=== PATIENT | female | born 1995 | race American Indian/Alaskan Native ===

== ENCOUNTER 2019-03-01 20:36 | Emergency (ER) | payer SELFPAY ==
--- NOTE | 2019-03-01 21:21 | Event Note ---
ED Screening Note Date of service: 03/01/19 ED Screening Note: This initial assessment/diagnostic orders/clinical plan/treatment(s) is/are subject to change based on patients health status, clinical progression and re- assessment by fellow clinical providers in the ED. Further treatment and workup at subsequent clinical providers discretion. Patient/guardian urged not to elope from the ED as their condition may be serious if not clinically assessed and managed. Initial orders include: 23yo BF states that she has CP and coughing x 2 days. She states that she has used her nebulizer for asthma at home with no relief.
[2019-03-01] MEDS ORDERED: IPRATROPIUM 0.02% NEBU 2.5 ML IH ONE (23:58)
[2019-03-01] MEDS ORDERED: methylPREDNISolone Sod Succinate 125 MG/2 ML INJ IV ONE (23:58)
[2019-03-01] MEDS ORDERED: ALBUTEROL 2.5 MG/3 ML NEBU IH ONE (23:58)
[2019-03-02 00:24] LABS: Hematocrit 38.3 % (30.3-42.9); Hemoglobin 12.9 gm/dl (10.1-14.3); Mean Corpuscular HGB Conc 34 % (30-34); Mean Corpuscular Volume 93 fl (79-97); Platelet Count 244 K/mm3 (140-440); Red Blood Count 4.13 M/mm3 (3.65-5.03); Red Cell Distribution Width 13.8 % (13.2-15.2)
[2019-03-02 00:45] LABS: BUN/Creatinine Ratio 17; Blood Urea Nitrogen 10 mg/dL (7-17); Calcium 9.1 mg/dL (8.4-10.2); Hemolysis Index 52
--- NOTE | 2019-03-02 01:24 | Emergency Department Report ---
ED Asthma HPI - General Chief Complaint: Adult Asthma Stated Complaint: [place] WHEEZING ASTHMA Time Seen by Provider: 03/01/19 23:54 Source: patient Mode of arrival: Ambulatory Limitations: No Limitations - History of Present Illness Initial Comments: Patient is a 23-year-old female presents emergency room with complaints of an asthma exacerbation that began 2 days ago. She has associated wheezing, chest tightness, dry cough. She denies any productive cough or fever. She denies any sick contacts. She states she is a nonsmoker. She denies any other medical problems. She denies any allergies medications. She states that she uses albuterol inhaler and nebulizer treatments at home. She states that she is doing approximately 6 nebulizer treatments a day. - Related Data Previous Rx's Medication Instructions Recorded Last Taken Type ALBUTEROL Inhaler (OR & NICU) 2 puff IH QID PRN #8.5 gram 03/02/19 Unknown Rx [ProAir HFA Inhaler] Albuterol Sulfate [Albuterol 0.63% 0.63 mg IH TID PRN #1 box 03/02/19 Unknown Rx NEBS] predniSONE [Deltasone] 20 mg PO QDAY 9 Days #18 tab 03/02/19 Unknown Rx Allergies Allergy/AdvReac Type Severity Reaction Status Date / Time No Known Allergies Allergy Unverified 03/01/19 21:10 ED Review of Systems ROS: Stated complaint: [place] WHEEZING ASTHMA Other details as noted in HPI Comment: All other systems reviewed and negative ED Past Medical Hx - Past Medical History Previous Medical History?: Yes Hx Arthritis: Yes - Surgical History Past Surgical History?: No - Social History Smoking Status: Former Smoker Substance Use Type: None - Medications Home Medications: Home Medications Medication Instructions Recorded Confirmed Last Taken Type ALBUTEROL Inhaler (OR & NICU) 2 puff IH QID PRN #8.5 gram 03/02/19 Unknown Rx [ProAir HFA Inhaler] Albuterol Sulfate [Albuterol 0.63% 0.63 mg IH TID PRN #1 box 03/02/19 Unknown Rx NEBS] predniSONE [Deltasone] 20 mg PO QDAY 9 Days #18 tab 03/02/19 Unknown Rx ED Physical Exam - General Limitations: No Limitations General appearance: alert, in no apparent distress - Head Head exam: Present: atraumatic, normocephalic - Eye Eye exam: Present: normal appearance - ENT ENT exam: Present: mucous membranes moist - Respiratory Respiratory exam: Present: wheezes (bilaterally), rhonchi (bilaterally), prolonged expiratory, other (speaking in full sentences). Absent: rales, stridor, chest wall tenderness, accessory muscle use, decreased breath sounds - Cardiovascular Cardiovascular Exam: Present: regular rate, normal rhythm, normal heart sounds. Absent: systolic murmur, diastolic murmur, rubs, gallop - Neurological Exam Neurological exam: Present: alert, oriented X3 - Psychiatric Psychiatric exam: Present: normal affect, normal mood - Skin Skin exam: Present: warm, dry, intact ED Course Vital Signs 03/01/19 03/01/19 03/02/19 20:45 23:43 00:00 Temperature 99.0 F 98.9 F Pulse Rate 95 H 84 89 Pulse Rate [ Bilateral Throughout] Respiratory 15 18 17 Rate Respiratory Rate [Bilateral Throughout] Blood Pressure 123/86 126/79 Blood Pressure 135/79 [Left] O2 Sat by Pulse 94 95 95 Oximetry 03/02/19 03/02/19 03/02/19 00:30 00:48 01:00 Temperature Pulse Rate 73 108 H Pulse Rate [ 75 Bilateral Throughout] Respiratory 13 11 L Rate Respiratory 14 Rate [Bilateral Throughout] Blood Pressure 131/69 143/76 Blood Pressure [Left] O2 Sat by Pulse 99 100 Oximetry 03/02/19 03/02/19 01:30 02:15 Temperature Pulse Rate 90 Pulse Rate [ Bilateral Throughout] Respiratory 16 Rate Respiratory Rate [Bilateral Throughout] Blood Pressure 133/69 Blood Pressure 115/68 [Left] O2 Sat by Pulse 98 96 Oximetry - Reevaluation(s) Reevaluation #1: 03/02/19 02:21 On reexamination after nebulizer treatment and steroids and breath sounds have significantly improved very mild slight wheeze in the bilateral bases patient states she is feeling much better ED Medical Decision Making - Lab Data Result diagrams: 03/02/19 00:14 03/02/19 00:14 Lab Results 03/02/19 03/02/19 03/02/19 Range/Units 00:14 00:14 00:14 WBC 10.4 (4.5-11.0) K/mm3 RBC 4.13 (3.65-5.03) M/mm3 Hgb 12.9 (10.1-14.3) gm/dl Hct 38.3 (30.3-42.9) % MCV 93 (79-97) fl MCH 31 (28-32) pg MCHC 34 (30-34) % RDW 13.8 (13.2-15.2) % Plt Count 244 (140-440) K/mm3 Sodium 137 (137-145) mmol/L Potassium 3.9 (3.6-5.0) mmol/L Chloride 101.8 (98-107) mmol/L Carbon Dioxide 19 L (22-30) mmol/L Anion Gap 20 mmol/L BUN 10 (7-17) mg/dL Creatinine 0.6 L (0.7-1.2) mg/dL Estimated GFR > 60 ml/min BUN/Creatinine Ratio 17 % Glucose 84 (65-100) mg/dL Calcium 9.1 (8.4-10.2) mg/dL HCG, Qual Negative (Negative) - Radiology Data Radiology results: report reviewed CHEST 2 VIEWS INDICATION / CLINICAL INFORMATION: cough, chest tightness, hx of asthma. COMPARISON: None available. FINDINGS: SUPPORT DEVICES: None. HEART / MEDIASTINUM: No significant abnormality. LUNGS / PLEURA: No significant pulmonary or pleural abnormality. No pneumothora x. ADDITIONAL FINDINGS: No significant additional findings. IMPRESSION: 1. No acute findings. Signer Name: Madan Lauren MD Signed: 03/02/2019 2:09 AM Workstation Name: [id number] Transcribed By: Dictated By: Madan Lauren MD Electronically Authenticated By: Madan Lauren MD Signed Date/Time: 03/02/19 0209 - Medical Decision Making Patient is a 23-year-old female presents emergency room with complaints of an asthma exacerbation that began 2 days ago. She has associated wheezing, chest tightness, dry cough. She denies any productive cough or fever. She denies any sick contacts. She states she is a nonsmoker. She denies any other medical problems. She denies any allergies medications. She states that she uses albuterol inhaler and nebulizer treatments at home. She states that she is doing approximately 6 nebulizer treatments a day. VSS. on exam: Wheezing, rhonchi, prolonged expiratory phase. Labs are stable. Chest x-ray with no acute process. Patient given a continuous nebulizer treatment and steroids. On reexamination after nebulizer treatment and steroids and breath sounds have significantly improved very mild slight wheeze in the bilateral bases patient states she is feeling much better. She given prescription for steroid taper, albuterol inhaler, albuterol nebulizer treatment. advised pt to Please use medication as prescribed. Follow-up with a primary care doctor in the next 2-3 days. Return to the emergency room for any new or worsening symptoms. Critical care attestation.: If time is entered above; I have spent that time in minutes in the direct care of this critically ill patient, excluding procedure time. ED Disposition Clinical Impression: Asthma Qualifiers: Asthma severity: unspecified severity Asthma persistence: unspecified Asthma complication type: with acute exacerbation Qualified Code(s): J45.901 - Unspecified asthma with (acute) exacerbation Disposition: TO HOME OR SELFCARE Is pt being admited?: No Does the pt Need Aspirin: No Condition: Stable Instructions: Asthma (ED) Additional Instructions: Please use medication as prescribed. Follow-up with a primary care doctor in the next 2-3 days. Return to the emergency room for any new or worsening symptoms. Prescriptions: Albuterol Sulfate [Albuterol 0.63% NEBS] 0.63 mg IH TID PRN #1 box PRN Reason: Wheezing predniSONE [Deltasone] 20 mg PO QDAY 9 Days #18 tab ALBUTEROL Inhaler (OR & NICU) [ProAir HFA Inhaler] 2 puff IH QID PRN #8.5 gram PRN Reason: Shortness Of Breath Referrals: CELSO WILLIAMSON MD [Primary Care Provider] - 2-3 Days [facility] [Outside] - 2-3 Days [facility] [Outside] - 2-3 Days Time of Disposition: :22 Print Language: SWEDISH
--- NOTE | 2019-03-02 02:14 | XRay Report ---
CHEST 2 VIEWS INDICATION / CLINICAL INFORMATION: cough, chest tightness, hx of asthma. COMPARISON: None available. FINDINGS: SUPPORT DEVICES: None. HEART / MEDIASTINUM: No significant abnormality. LUNGS / PLEURA: No significant pulmonary or pleural abnormality. No pneumothorax. ADDITIONAL FINDINGS: No significant additional findings. IMPRESSION: 1. No acute findings. Signer Name: Madan Lauren MD Signed: 03/02/2019 2:09 AM Workstation Name: [email or web address]
[2019-03-02 02:38] VITALS: BP 115/68
== END 2019-03-02 02:37 | disposition home or self-care (01) ==
LOC: ED 20:36
DX: J45.901 Unspecified asthma with (acute) exacerbation (principal); M19.90 Unspecified osteoarthritis, unspecified site; Z87.891 Personal history of nicotine dependence; Z79.899 Other long term (current) drug therapy
CPT/HCPCS: 36415; 71046; 80048; 84703; 85027; 94644; 96374; 99284; J2930

== ENCOUNTER 2019-04-06 09:12 | Inpatient (IN) | payer OTHER ==
[2019-04-06] MEDS ORDERED: LEVALBUTEROL 0.63 MG/3 ML NEBU IH ONE (09:16)
[2019-04-06] MEDS ORDERED: SODIUM CHLORIDE 0.9% 1000 ML 1,000 ML IV ONE ×2 (09:16→12:29)
[2019-04-06] MEDS ORDERED: IPRATROPIUM 0.02% NEBU 2.5 ML IH ONE (09:17)
[2019-04-06 10:18] LABS: Basophils % (Auto) 0.1 % (0.0-1.8); Hemoglobin 13.2 gm/dl (10.1-14.3); Lymphocytes # (Auto) 0.9 K/mm3 (1.2-5.4); Lymphocytes % (Auto) 7.1 % (13.4-35.0); Mean Corpuscular HGB Conc 33 % (30-34); Mean Corpuscular Volume 92 fl (79-97); Monocytes # (Auto) 0.7 K/mm3 (0.0-0.8); Monocytes % (Auto) 5.1 % (0.0-7.3); Platelet Count 301 K/mm3 (140-440); Red Blood Count 4.36 M/mm3 (3.65-5.03); Red Cell Distribution Width 13.9 % (13.2-15.2)
[2019-04-06 10:27] LABS: INR 1.09 (0.87-1.13)
[2019-04-06 10:28] LABS: Partial Thromboplastin Time 28.1 Sec. (24.2-36.6)
--- NOTE | 2019-04-06 10:33 | XRay Report ---
CHEST 1 VIEW INDICATION: hypertension. COMPARISON: 03/02/2019. FINDINGS: Support devices: None. Heart: Within normal limits. Lungs/Pleura: No acute air space or interstitial disease. Additional findings: None. IMPRESSION: No acute abnormality. Signer Name: Angel Luis Petty MD Signed: 04/06/2019 10:28 AM Workstation Name: [id number]
[2019-04-06 10:37] LABS: Creatine Kinase MB 3.8 ng/mL (0.0-4.0)
[2019-04-06 10:40] LABS: Alanine Aminotransferase 15 units/L (7-56); Albumin 3.8 g/dL (3.9-5); BUN/Creatinine Ratio 10; Blood Urea Nitrogen 8 mg/dL (7-17); Calcium 8.7 mg/dL (8.4-10.2); Hemolysis Index 4
[2019-04-06] MEDS ORDERED: POTASSIUM CHLORIDE ER 20 MEQ TAB PO ONE (10:46)
[2019-04-06 10:47] LABS: Free T4 (Free Thyroxine) 1.07 ng/dL (0.76-1.46)
[2019-04-06] MEDS ORDERED: cefTRIAXone/NS 1 GM/50 ML 1 GM/50 ML BAG IV ONE (10:49)
[2019-04-06 11:05] LABS: Bilirubin,Direct < 0.2 mg/dL (0-0.2)
[2019-04-06] MEDS ORDERED: ACETAMINOPHEN 500 MG TAB PO ONE (11:07)
[2019-04-06] MEDS ORDERED: ONDANSETRON 4 MG/2 ML INJ ONE (11:20)
--- NOTE | 2019-04-06 11:33 | Emergency Department Report ---
ED General Adult HPI - General Chief complaint: Dyspnea/Respdistress Stated complaint: DIFFICULTY BREATHING Time Seen by Provider: 04/06/19 09:16 Source: patient, EMS Mode of arrival: Stretcher Limitations: No Limitations - History of Present Illness Initial comments: 23-year-old female presented to the emergency department in respiratory distress the EMS. She was additionally quite anxious. She has a history of multiple intubations in the past. She is able speak in full sentences however when she arrived. She appeared to be a good candidate for high flow humidified oxygen therapy. This was initiated just shortly as her arrival. Patient was able to tell me that she had been coughing quite a bit over the last several days sometime producing sputum. She did not measure her temperature at was unsure if she had a fever. She denied chest pain. She denied recent travel. She's had no leg swelling or pain. She had been using her inhaler wi thout substantial benefit. She had been on steroids in the past but not currently. EMS provided the patient Solu-Medrol and albuterol. I'm not certain about the magnesium but it is documented in the triage note. -: Gradual, days(s), week(s) Worsens with: none Associated Symptoms: denies other symptoms, cough - Related Data Previous Rx's Medication Instructions Recorded Last Taken Type ALBUTEROL Inhaler (OR & NICU) 2 puff IH QID PRN #8.5 gram 03/02/19 Unknown Rx [ProAir HFA Inhaler] Albuterol Sulfate [Albuterol 0.63% 0.63 mg IH TID PRN #1 box 03/02/19 Unknown Rx NEBS] predniSONE [Deltasone] 20 mg PO QDAY 9 Days #18 tab 03/02/19 Unknown Rx Allergies Allergy/AdvReac Type Severity Reaction Status Date / Time No Known Allergies Allergy Unverified 03/01/19 21:10 ED Review of Systems ROS: Stated complaint: DIFFICULTY BREATHING Other details as noted in HPI Constitutional: denies: chills, fever Eyes: denies: eye pain, eye discharge, vision change ENT: denies: ear pain, throat pain Respiratory: cough, shortness of breath, wheezing Cardiovascular: denies: chest pain, palpitations Endocrine: no symptoms reported Gastrointestinal: denies: abdominal pain, nausea, diarrhea Genitourinary: denies: urgency, dysuria, discharge Musculoskeletal: denies: back pain, joint swelling, arthralgia Skin: denies: rash, lesions Neurological: denies: headache, weakness, paresthesias Psychiatric: denies: anxiety, depression Hematological/Lymphatic: denies: easy bleeding, easy bruising ED Past Medical Hx - Past Medical History Hx Arthritis: Yes Hx Asthma: Yes - Surgical History Past Surgical History?: Yes Additional Surgical History: wisdom teeth removal - Social History Smoking Status: Former Smoker Substance Use Type: None - Medications Home Medications: Home Medications Medication Instructions Recorded Confirmed Last Taken Type ALBUTEROL Inhaler (OR & NICU) 2 puff IH QID PRN #8.5 gram 03/02/19 Unknown Rx [ProAir HFA Inhaler] Albuterol Sulfate [Albuterol 0.63% 0.63 mg IH TID PRN #1 box 03/02/19 Unknown Rx NEBS] predniSONE [Deltasone] 20 mg PO QDAY 9 Days #18 tab 03/02/19 Unknown Rx ED Physical Exam - General Limitations: Physical Limitation General appearance: alert, in no apparent distress, obese - Head Head exam: Present: atraumatic, normocephalic - Eye Eye exam: Present: normal appearance, PERRL, EOMI. Absent: scleral icterus - ENT ENT exam: Present: mucous membranes moist - Neck Neck exam: Present: normal inspection. Absent: tenderness, meningismus - Respiratory Respiratory exam: Present: respiratory distress (mild), wheezes, other (increased work of breathing) - Cardiovascular Cardiovascular Exam: Present: normal rhythm, tachycardia. Absent: systolic murmur, diastolic murmur, rubs, gallop - GI/Abdominal GI/Abdominal exam: Present: soft, normal bowel sounds. Absent: distended, tenderness, guarding, rebound, rigid - Extremities Exam Extremities exam: Present: normal inspection. Absent: pedal edema, calf tenderness - Back Exam Back exam: Present: normal inspection - Neurological Exam Neurological exam: Present: alert, oriented X3, CN II-XII intact. Absent: motor sensory deficit - Psychiatric Psychiatric exam: Present: normal affect, normal mood - Skin Skin exam: Present: warm, dry, intact, normal color. Absent: rash ED Course Vital Signs 04/06/19 04/06/19 04/06/19 09:23 09:35 09:58 Temperature Pulse Rate 147 H 151 H Pulse Rate [ 80 Right Middle Lobe] Respiratory 30 H 30 H Rate Respiratory 16 Rate [Right Middle Lobe] Blood Pressure 109/78 118/61 [Left] O2 Sat by Pulse 100 99 Oximetry 04/06/19 04/06/19 04/06/19 09:59 10:07 10:47 Temperature 102.3 F H Pulse Rate 151 H Pulse Rate [ Right Middle Lobe] Respiratory 32 H Rate Respiratory Rate [Right Middle Lobe] Blood Pressure [Left] O2 Sat by Pulse 100 Oximetry 04/06/19 04/06/19 11:08 12:57 Temperature 99.7 F H Pulse Rate 129 H 115 H Pulse Rate [ Right Middle Lobe] Respiratory 28 H 25 H Rate Respiratory Rate [Right Middle Lobe] Blood Pressure 144/66 116/61 [Left] O2 Sat by Pulse 94 99 Oximetry - Reevaluation(s) Reevaluation #1: Patient seemed to respond well to Xopenex and Atrovent continuous nebs combined with high flow human applied oxygen therapy. She couldn't tolerate a pressure of 40 so we dialed it down ultimately to 20. This was well tolerated. At the time of blood gas was obtained and the patient's PCO2 was 28. I believe she was likely hypercapnic when she arrived as she was not ventilating well and was a bit lethargic. Therefore I do think this has been effective. Her work of breathing has improved dramatically. I don't hear any significant residual wheeze. She does have prolonged expiratory phase. There is no accessory muscle use at this time. It was quite tachycardic and tachypneic when she arrived. Lactic acid level and blood cultures were ordered. Lactic acid level came back at 3.4. The patient spiked a fever to 102. She had been given ceftriaxone. I added vancomycin and consideration of the possib ility of sepsis. However, her chest x-ray did not show focus of infection. I requested the nurse to straight catheterize her to check her urine. Patient was admitted by to the Hospitalist service. 04/06/19 13:04 ED Medical Decision Making - Lab Data Result diagrams: 04/06/19 09:36 04/06/19 09:36 Laboratory Results - last 24 hr 04/06/19 04/06/19 04/06/19 09:36 09:36 09:36 WBC 13.0 H RBC 4.36 Hgb 13.2 Hct 40.0 MCV 92 MCH 30 MCHC 33 RDW 13.9 Plt Count 301 Lymph % (Auto) 7.1 L [place] % (Auto) 5.1 Eos % (Auto) 0.0 Baso % (Auto) 0.1 Lymph # 0.9 L [place] # 0.7 Eos # 0.0 Baso # 0.0 Seg Neutrophils % 87.7 H Seg Neutrophils # 11.4 H PT 14.2 INR 1.09 APTT 28.1 Sodium 137 Potassium 3.2 L Chloride 102.3 Carbon Dioxide 17 L Anion Gap 21 BUN 8 Creatinine 0.8 Estimated GFR > 60 BUN/Creatinine Ratio 10 Glucose 187 H Calcium 8.7 Magnesium 2.50 H Total Bilirubin 0.50 Direct Bilirubin < 0.2 Indirect Bilirubin 0.3 AST 20 ALT 15 Alkaline Phosphatase 90 Total Creatine Kinase 158 H CK-MB (CK-2) 3.8 CK-MB (CK-2) Rel Index 2.4 Troponin T NT-Pro-B Natriuret Pep 296.4 Total Protein 6.9 Albumin 3.8 L Albumin/Globulin Ratio 1.2 TSH Free T4 04/06/19 04/06/19 09:36 09:36 WBC RBC Hgb Hct MCV MCH MCHC RDW Plt Count Lymph % (Auto) [place] % (Auto) Eos % (Auto) Baso % (Auto) Lymph # [place] # Eos # Baso # Seg Neutrophils % Seg Neutrophils # PT INR APTT Sodium Potassium Chloride Carbon Dioxide Anion Gap BUN Creatinine Estimated GFR BUN/Creatinine Ratio Glucose Calcium Magnesium Total Bilirubin Direct Bilirubin Indirect Bilirubin AST ALT Alkaline Phosphatase Total Creatine Kinase CK-MB (CK-2) CK-MB (CK-2) Rel Index Troponin T < 0.010 NT-Pro-B Natriuret Pep Total Protein Albumin Albumin/Globulin Ratio TSH 0.593 Free T4 1.07 Laboratory Results - last 24 hr 04/06/19 04/06/19 04/06/19 09:36 09:36 09:36 WBC 13.0 H RBC 4.36 Hgb 13.2 Hct 40.0 MCV 92 MCH 30 MCHC 33 RDW 13.9 Plt Count 301 Lymph % (Auto) 7.1 L [place] % (Auto) 5.1 Eos % (Auto) 0.0 Baso % (Auto) 0.1 Lymph # 0.9 L [place] # 0.7 Eos # 0.0 Baso # 0.0 Seg Neutrophils % 87.7 H Seg Neutrophils # 11.4 H PT 14.2 INR 1.09 APTT 28.1 Sodium 137 Potassium 3.2 L Chloride 102.3 Carbon Dioxide 17 L Anion Gap 21 BUN 8 Creatinine 0.8 Estimated GFR > 60 BUN/Creatinine Ratio 10 Glucose 187 H Lactic Acid Calcium 8.7 Magnesium 2.50 H Total Bilirubin 0.50 Direct Bilirubin < 0.2 Indirect Bilirubin 0.3 AST 20 ALT 15 Alkaline Phosphatase 90 Total Creatine Kinase 158 H CK-MB (CK-2) 3.8 CK-MB (CK-2) Rel Index 2.4 Troponin T NT-Pro-B Natriuret Pep 296.4 Total Protein 6.9 Albumin 3.8 L Albumin/Globulin Ratio 1.2 TSH Free T4 04/06/19 04/06/19 04/06/19 09:36 09:36 11:06 WBC RBC Hgb Hct MCV MCH MCHC RDW Plt Count Lymph % (Auto) [place] % (Auto) Eos % (Auto) Baso % (Auto) Lymph # [place] # Eos # Baso # Seg Neutrophils % Seg Neutrophils # PT INR APTT Sodium Potassium Chloride Carbon Dioxide Anion Gap BUN Creatinine Estimated GFR BUN/Creatinine Ratio Glucose Lactic Acid 3.40 H* Calcium Magnesium Total Bilirubin Direct Bilirubin Indirect Bilirubin AST ALT Alkaline Phosphatase Total Creatine Kinase CK-MB (CK-2) CK-MB (CK-2) Rel Index Troponin T < 0.010 NT-Pro-B Natriuret Pep Total Protein Albumin Albumin/Globulin Ratio TSH 0.593 Free T4 1.07 - EKG Data -: EKG Interpreted by Ia EKG shows normal: sinus rhythm Rate: tachycardia - EKG Data Interpretation: nonspecific ST-T wave alisha - Radiology Data Radiology results: report reviewed (no acute abnormality), image reviewed Critical Care Time: Yes Critical care time in (mins) excluding proc time.: 80 Critical care attestation.: If time is entered above; I have spent that time in minutes in the direct care of this critically ill patient, excluding procedure time. ED Disposition Clinical Impression: Acute respiratory failure with hypoxia, Lactic acidosis Status asthmaticus Qualifiers: Asthma severity: severe Asthma persistence: persistent Qualified Code(s): J45.52 - Severe persistent asthma with status asthmaticus Disposition: OP ADMIT IP TO THIS HOSP Is pt being admited?: Yes Does the pt Need Aspirin: Yes Condition: Stable Time of Disposition: 13:10
[2019-04-06 12:44] LABS: ABG Base Excess -7.5 mmol/L (-2.0-3.0); ABG HCO3 16.1 mmol/L (20.0-26.0); ABG Methemoglobin 0.7 % (0.0-1.5); ABG Oxygen Saturation 95.6 % (95.0-99.0); ABG PCO2 28.3 mm Hg; ABG PH 7.373 pH Units (7.350-7.450); ABG PO2 76.7 mm Hg (80.0-90.0)
[2019-04-06] MEDS ORDERED: VANCOMYCIN PHARMACY TO DOSE IV SCH (13:00)
[2019-04-06] MEDS ORDERED: ASPIRIN 325 MG TAB PO ONE (13:10)
[2019-04-06 13:38] LABS: Bacteria,Urine 1+ /HPF (Negative); Bilirubin,Urine NEG (Negative); Blood,Urine SM (Negative); Color,Urine Amber (Yellow); Mucus,Urine 3+ /HPF; Urobilinogen,Urine < 2.0 mg/dL (<2.0)
[2019-04-06 13:43] LABS: Amorphous Crystals,Urine 1+
[2019-04-06 13:52] LABS: Amphetamine Screen,Urine PRESUMPTIVE NEGATIVE; Benzodiazepines Screen,Urine PRESUMPTIVE NEGATIVE; Cocaine Screen,Urine PRESUMPTIVE NEGATIVE; Methadone Screen,Urine PRESUMPTIVE NEGATIVE; Opiate Screen,Urine PRESUMPTIVE NEGATIVE
[2019-04-06] MEDS ORDERED: VANCOMYCIN 2,000 MG in SODIUM CHLORIDE 0.9% 500 ML 500 ML IV ONE (14:00)
[2019-04-06 14:05] LABS: Cannabinoid Screen,Urine PRESUMPTIVE POSITIVE
[2019-04-06] MEDS ORDERED: IPRATROPIUM/ALBUTEROL SULFATE 3 ML AMPUL.NEB IH ONE (14:08)
[2019-04-06] MEDS ORDERED: ASPIRIN 325 MG TAB ONE (16:26)
[2019-04-06] MEDS: methylPREDNISolone Sod Succinate 40 MG/1 ML INJ IV SCH (19:08)
[2019-04-06] MEDS: IPRATROPIUM/ALBUTEROL SULFATE 3 ML AMPUL.NEB IH SCH (19:13)
[2019-04-06] MEDS: BUDESONIDE 0.5 MG/2 ML NEBU IH SCH (19:13)
[2019-04-06] MEDS ORDERED: ACETAMINOPHEN 325 MG TAB PO PRN (19:31)
[2019-04-06] MEDS ORDERED: ONDANSETRON 4 MG/2 ML INJ IV PRN (19:31)
--- NOTE | 2019-04-06 19:31 | History and Physical Report ---
History of Present Illness Date of admission: 04/06/19 13:11 Chief complaint: Shortness of breath History of present illness: 23-year-old woman who presents to the hospital with shortness of breath wheezing and coughing. She states that her symptoms began first with fever chills and intermittent diaphoresis, she stated that she would wake up in a cold sweats, and then feel hot all over again. She had pain all over her body joint pains muscle aches, shortness of breath and nonproductive cough. Symptoms did not improve prompting her to come back to the hospital. Denies any sick con tacts Past medical history; mild intermittent asthma; obesity, arthritis Past surgical history, wisdom teeth removal Social history, former smoker only smoked a few years Family history; noncontributory Medications and Allergies Allergies Allergy/AdvReac Type Severity Reaction Status Date / Time No Known Allergies Allergy Unverified 03/01/19 21:10 Home Medications Medication Instructions Recorded Confirmed Last Taken Type ALBUTEROL Inhaler (OR & NICU) 2 puff IH QID PRN #8.5 gram 03/02/19 Unknown Rx [ProAir HFA Inhaler] Albuterol Sulfate [Albuterol 0.63% 0.63 mg IH TID PRN #1 box 03/02/19 Unknown Rx NEBS] predniSONE [Deltasone] 20 mg PO QDAY 9 Days #18 tab 03/02/19 Unknown Rx Active Meds: Active Medications Albuterol/Ipratropium (Duoneb *Not For Prn Use*) 1 ampul IH Q6HRT [facility] Last Admin: 04/06/19 19:13 Dose: 1 ampul Documented by: Budesonide (Pulmicort) 0.5 mg IH Q12HRT [facility] Last Admin: 04/06/19 19:13 Dose: 0.5 mg Documented by: Methylprednisolone Sodium Succinate (Solu-Medrol) 40 mg IV Q8H [facility] Last Admin: 04/06/19 19:08 Dose: 40 mg Documented by: Oseltamivir Phosphate (Tamiflu) 75 mg PO BID [facility] Stop: 04/11/19 10:01 Review of Systems All systems: negative Constitutional: fever, fatigue, weakness, malaise Respiratory: cough, shortness of breath, wheezing Exam - Constitutional Vitals: Temp Pulse Resp BP Pulse Ox 98.8 F 86 20 105/73 94 04/06/19 17:09 04/06/19 19:14 04/06/19 19:14 04/06/19 17:09 04/06/19 19:17 General appearance: Present: mild distress, well-nourished - EENT Eyes: Present: PERRL ENT: hearing intact, clear oral mucosa - Neck Neck: Present: supple, normal ROM - Respiratory Respiratory effort: normal Respiratory: bilateral: diminished (Was apparently wheezing in the ER, not currently wheezing on my exam) - Cardiovascular Heart Sounds: Present: S1 & S2. Absent: rub, click - Extremities Extremities: pulses symmetrical, No edema Peripheral Pulses: within normal limits - Abdominal General gastrointestinal: Present: soft, non-tender, non-distended, normal bowel sounds Female genitourinary: Present: normal - Integumentary Integumentary: Present: clear, warm, dry - Musculoskeletal Musculoskeletal: gait normal, strength equal bilaterally - Psychiatric Psychiatric: appropriate mood/affect, intact judgment & insight - Neurologic Neurologic: CNII-XII intact, moves all extremities Results - Labs CBC & Chem 7: 04/06/19 09:36 04/06/19 09:36 Labs: Laboratory Last Values WBC 13.0 K/mm3 (4.5-11.0) H 04/06/19 09:36 RBC 4.36 M/mm3 (3.65-5.03) 04/06/19 09:36 Hgb 13.2 gm/dl (10.1-14.3) 04/06/19 09:36 Hct 40.0 % (30.3-42.9) 04/06/19 09:36 MCV 92 fl (79-97) 04/06/19 09:36 MCH 30 pg (28-32) 04/06/19 09:36 MCHC 33 % (30-34) 04/06/19 09:36 RDW 13.9 % (13.2-15.2) 04/06/19 09:36 Plt Count 301 K/mm3 (140-440) 04/06/19 09:36 Lymph % (Auto) 7.1 % (13.4-35.0) L 04/06/19 09:36 [place] % (Auto) 5.1 % (0.0-7.3) 04/06/19 09:36 Eos % (Auto) 0.0 % (0.0-4.3) 04/06/19 09:36 Baso % (Auto) 0.1 % (0.0-1.8) 04/06/19 09:36 Lymph # 0.9 K/mm3 (1.2-5.4) L 04/06/19 09:36 [place]cer # 0.7 K/mm3 (0.0-0.8) 04/06/19 09:36 Eos # 0.0 K/mm3 (0.0-0.4) 04/06/19 09:36 Baso # 0.0 K/mm3 (0.0-0.1) 04/06/19 09:36 Seg Neutrophils % 87.7 % (40.0-70.0) H 04/06/19 09:36 Seg Neutrophils # 11.4 K/mm3 (1.8-7.7) H 04/06/19 09:36 PT 14.2 Sec. (12.2-14.9) 04/06/19 09:36 INR 1.09 (0.87-1.13) 04/06/19 09:36 APTT 28.1 Sec. (24.2-36.6) 04/06/19 09:36 ABG pH 7.373 pH Units (7.350-7.450) 04/06/19 Unknown ABG pCO2 28.3 mm Hg 04/06/19 Unknown ABG pO2 76.7 mm Hg (80.0-90.0) L 04/06/19 Unknown ABG HCO3 16.1 mmol/L (20.0-26.0) L 04/06/19 Unknown ABG O2 Saturation 95.6 % (95.0-99.0) 04/06/19 Unknown ABG O2 Content 19.7 (0.0-44) 04/06/19 Unknown ABG Base Excess -7.5 mmol/L (-2.0-3.0) L 04/06/19 Unknown ABG Hemoglobin 14.9 gm/dl (12.0-16.0) 04/06/19 Unknown ABG Carboxyhemoglobin 1.1 % (0.0-5.0) 04/06/19 Unknown ABG Methemoglobin 0.7 % (0.0-1.5) 04/06/19 Unknown Oxyhemoglobin 94.0 % (95.0-99.0) L 04/06/19 Unknown FiO2 30 % 04/06/19 Unknown Sodium 137 mmol/L (137-145) 04/06/19 09:36 Potassium 3.2 mmol/L (3.6-5.0) L 04/06/19 09:36 Chloride 102.3 mmol/L (98-107) 04/06/19 09:36 Carbon Dioxide 17 mmol/L (22-30) L 04/06/19 09:36 Anion Gap 21 mmol/L 04/06/19 09:36 BUN 8 mg/dL (7-17) 04/06/19 09:36 Creatinine 0.8 mg/dL (0.7-1.2) 04/06/19 09:36 Estimated GFR > 60 ml/min 04/06/19 09:36 BUN/Creatinine Ratio 10 % 04/06/19 09:36 Glucose 187 mg/dL (65-100) H 04/06/19 09:36 Lactic Acid 3.20 mmol/L (0.7-2.0) H* 04/06/19 16:25 Calcium 8.7 mg/dL (8.4-10.2) 04/06/19 09:36 Magnesium 2.50 mg/dL (1.7-2.3) H 04/06/19 09:36 Total Bilirubin 0.50 mg/dL (0.1-1.2) 04/06/19 09:36 Direct Bilirubin < 0.2 mg/dL (0-0.2) 04/06/19 09:36 Indirect Bilirubin 0.3 mg/dL 04/06/19 09:36 AST 20 units/L (5-40) 04/06/19 09:36 ALT 15 units/L (7-56) 04/06/19 09:36 Alkaline Phosphatase 90 units/L (35-129) 04/06/19 09:36 Total Creatine Kinase 158 units/L (30-135) H 04/06/19 09:36 CK-MB (CK-2) 3.8 ng/mL (0.0-4.0) 04/06/19 09:36 CK-MB (CK-2) Rel Index 2.4 (0-4) 04/06/19 09:36 Troponin T < 0.010 ng/mL (0.00-0.029) 04/06/19 09:36 NT-Pro-B Natriuret Pep 296.4 pg/mL (0-450) 04/06/19 09:36 Total Protein 6.9 g/dL (6.3-8.2) 04/06/19 09:36 Albumin 3.8 g/dL (3.9-5) L 04/06/19 09:36 Albumin/Globulin Ratio 1.2 % 04/06/19 09:36 TSH 0.593 mlU/mL (0.270-4.200) 04/06/19 09:36 Free T4 1.07 ng/dL (0.76-1.46) 04/06/19 09:36 Urine Color Anne (Yellow) 04/06/19 12:58 Urine Turbidity Turbid (Clear) 04/06/19 12:58 Urine pH 5.0 (5.0-7.0) 04/06/19 12:58 Ur Specific [place] 1.030 (1.003-1.030) 04/06/19 12:58 Urine Protein 30 mg/dl mg/dL (Negative) 04/06/19 12:58 Urine Glucose (UA) 150 mg/dL (Negative) 04/06/19 12:58 Urine Ketones 20 mg/dL (Negative) 04/06/19 12:58 Urine Blood Sm (Negative) 04/06/19 12:58 Urine Nitrite Neg (Negative) 04/06/19 12:58 Urine Bilirubin Neg (Negative) 04/06/19 12:58 Urine Urobilinogen < 2.0 mg/dL (<2.0) 04/06/19 12:58 Ur Leukocyte Esterase Neg (Negative) 04/06/19 12:58 Urine WBC (Auto) 2.0 /HPF (0.0-6.0) 04/06/19 12:58 Urine RBC (Auto) 14.0 /HPF (0.0-6.0) 04/06/19 12:58 U Epithel Cells (Auto) 8.0 /HPF (0-13.0) 04/06/19 12:58 Urine Bacteria (Auto) 1+ /HPF (Negative) 04/06/19 12:58 Amorphous Crystals 1+ 04/06/19 12:58 Urine Mucus 3+ /HPF 04/06/19 12:58 Urine Opiates Screen Presumptive negative 04/06/19 12:58 Urine Methadone Screen Presumptive negative 04/06/19 12:58 Ur Barbiturates Screen Presumptive negative 04/06/19 12:58 Ur Phencyclidine Scrn Presumptive negative 04/06/19 12:58 Ur Amphetamines Screen Presumptive negative 04/06/19 12:58 U Benzodiazepines Scrn Presumptive negative 04/06/19 12:58 Urine Cocaine Screen Presumptive negative 04/06/19 12:58 U Marijuana (THC) Screen Presumptive positive 04/06/19 12:58 Drugs of Abuse Note Disclamer 04/06/19 12:58 Assessment and Plan Assessment and plan: 23-year-old woman who presents to the hospital with fever shortness of breath cough and wheezing. Chest x-ray; no acute abnormality Asthma exacerbation; steroids, nebs, pulmonology consults, aggressive chest PT Sirs, suspected influenza Start on Tamiflu, obtain rapid flu as patient had high fever in the ER -Lactic acidosis, IV fluids Hypokalemia -Repleted DVT prophylaxis; early ambulation Marijuana abuse, UDS positive Preventative health counseling performed for 17 minutes
[2019-04-06] MEDS ORDERED: IPRATROPIUM/ALBUTEROL SULFATE 3 ML AMPUL.NEB IH SCH (20:00)
[2019-04-06] MEDS: OSELTAMIVIR 75 MG CAP PO SCH (21:27)
[2019-04-06] MEDS: SODIUM CHLORIDE 0.9% 1000 ML 1,000 ML IV SCH (21:28)
[2019-04-07] MEDS ORDERED: VANCOMYCIN 1,500 MG in SODIUM CHLORIDE 0.9% 500 ML 500 ML IV SCH (02:00)
[2019-04-07] MEDS: methylPREDNISolone Sod Succinate 40 MG/1 ML INJ IV SCH ×3 (02:41→18:01)
[2019-04-07] MEDS: IPRATROPIUM/ALBUTEROL SULFATE 3 ML AMPUL.NEB IH SCH ×4 (02:55→19:49)
[2019-04-07] MEDS: SODIUM CHLORIDE 0.9% 1000 ML 1,000 ML IV SCH ×3 (05:17→23:34)
[2019-04-07 05:28] LABS: Hematocrit 36.6 % (30.3-42.9); Hemoglobin 11.9 gm/dl (10.1-14.3); Mean Corpuscular HGB Conc 33 % (30-34); Mean Corpuscular Volume 92 fl (79-97); Platelet Count 271 K/mm3 (140-440); Red Blood Count 3.98 M/mm3 (3.65-5.03); Red Cell Distribution Width 14.5 % (13.2-15.2)
[2019-04-07 05:48] LABS: BUN/Creatinine Ratio 13; Blood Urea Nitrogen 8 mg/dL (7-17); Calcium 8.1 mg/dL (8.4-10.2); Hemolysis Index 0
[2019-04-07 06:14] LABS: Basophils % (Manual) 0 % (0.0-1.8); Eosinophils % (Manual) 0 % (0.0-4.3); Macrocytosis Few; Total Cells Counted 100
[2019-04-07 06:15] LABS: Large Platelets Few; Platelet Estimate Consistent w Auto
[2019-04-07] MEDS: BUDESONIDE 0.5 MG/2 ML NEBU IH SCH ×2 (07:55→19:50)
[2019-04-07] MEDS: guaiFENesin ER 600 MG TAB PO SCH ×2 (09:29→22:28)
[2019-04-07] MEDS: OSELTAMIVIR 75 MG CAP PO SCH ×2 (10:39→22:28)
--- NOTE | 2019-04-07 14:02 | Progress Note ---
Assessment and Plan /Asthma exacerbation; cont steroids, nebs, pulmonology consults, supplemental O2 /Sirs, suspected influenza Started on Tamiflu, obtain rapid flu as patient had high fever in the ER /Lactic acidosis, IV fluids /Hypokalemia -Repleted /DVT prophylaxis; early ambulation /Marijuana abuse, UDS positive Preventative health counseling performed for 17 minutes on admission Brief History: 23-year-old woman who presents to the hospital with fever shortness of breath cough and wheezing. Chest x-ray; no acute abnormality Subjective Date of service: 04/07/19 Interval history: Patient seen and examined c/o SOB on exertion Denies any chest pain Objective - Constitutional Vitals: Vital Signs - 12hr 04/07/19 04/07/19 04/07/19 02:55 05:23 07:57 Temperature 98.3 F Pulse Rate 89 Pulse Rate [ 63 66 Right Middle Lobe] Respiratory 16 Rate Respiratory 18 18 Rate [Right Middle Lobe] Blood Pressure 104/48 O2 Sat by Pulse 96 96 Oximetry 04/07/19 04/07/19 08:36 11:39 Temperature 98.5 F Pulse Rate 75 Pulse Rate [ Right Middle Lobe] Respiratory 18 20 Rate Respiratory Rate [Right Middle Lobe] Blood Pressure 120/81 O2 Sat by Pulse 95 Oximetry General appearance: Present: no acute distress, well-nourished - EENT Eyes: PERRL, EOM intact ENT: hearing intact, clear oral mucosa Ears: bilateral: normal - Neck Neck: supple, normal ROM - Respiratory Respiratory effort: other Respiratory: bilateral: wheezing - Cardiovascular Rhythm: regular Heart Sounds: Present: S1 & S2. Absent: gallop, rub Extremities: pulses intact, No edema, normal color, Full ROM - Gastrointestinal General gastrointestinal: Present: soft, non-tender, non-distended, normal bowel sounds - Integumentary Integumentary: clear, warm, dry - Musculoskeletal Musculoskeletal: 1, strength equal bilaterally - Neurologic Neurologic: moves all extremities - Psychiatric Psychiatric: memory intact, appropriate mood/affect, intact judgment & insight - Labs CBC & Chem 7: 04/07/19 04:53 04/07/19 04:53 Labs: Abnormal lab results 04/06/19 04/06/19 04/07/19 Range/Units 16:25 Unknown 04:53 WBC 12.0 H (4.5-11.0) K/mm3 Seg Neuts % (Manual) 97.0 H (40.0-70.0) % Lymphocytes % (Manual) 2.0 L (13.4-35.0) % Seg Neutrophils # Man 11.6 H (1.8-7.7) K/mm3 Lymphocytes # (Manual) 0.2 L (1.2-5.4) K/mm3 Chloride (98-107) mmol/L Carbon Dioxide (22-30) mmol/L Creatinine (0.7-1.2) mg/dL Glucose (65-100) mg/dL Lactic Acid 3.20 H* (0.7-2.0) mmol/L Calcium (8.4-10.2) mg/dL Influenza A (Rapid) Positive A (Negative) 04/07/19 Range/Units 04:53 WBC (4.5-11.0) K/mm3 Seg Neuts % (Manual) (40.0-70.0) % Lymphocytes % (Manual) (13.4-35.0) % Seg Neutrophils # Man (1.8-7.7) K/mm3 Lymphocytes # (Manual) (1.2-5.4) K/mm3 Chloride 108.3 H (98-107) mmol/L Carbon Dioxide 18 L (22-30) mmol/L Creatinine 0.6 L (0.7-1.2) mg/dL Glucose 138 H (65-100) mg/dL Lactic Acid (0.7-2.0) mmol/L Calcium 8.1 L (8.4-10.2) mg/dL Influenza A (Rapid) (Negative)
--- NOTE | 2019-04-07 15:25 | Consultation ---
History of Present Illness Consult date: 04/07/19 Requesting physician: CHAI LOFTON Reason for consult: other (AE-COPD) Medications and Allergies Allergies Allergy/AdvReac Type Severity Reaction Status Date / Time No Known Allergies Allergy Unverified 03/01/19 21:10 Home Medications Medication Instructions Recorded Confirmed Last Taken Type ALBUTEROL Inhaler (OR & NICU) 2 puff IH QID PRN #8.5 gram 03/02/19 04/07/19 Unknown Rx [ProAir HFA Inhaler] Albuterol Sulfate [Albuterol 0.63% 0.63 mg IH TID PRN #1 box 03/02/19 04/07/19 Unknown Rx NEBS] predniSONE [Deltasone] 20 mg PO QDAY 9 Days #18 tab 03/02/19 04/07/19 Unknown Rx Active Meds: Active Medications Acetaminophen (Tylenol) 650 mg PO Q4H PRN PRN Reason: Pain MILD(1-3)/Fever >100.5/MALDONADO Albuterol/Ipratropium (Duoneb *Not For Prn Use*) 1 ampul IH Q6HRT [facility] Last Admin: 04/07/19 14:15 Dose: 1 ampul Documented by: Budesonide (Pulmicort) 0.5 mg IH Q12HRT [facility] Last Admin: 04/07/19 07:55 Dose: 0.5 mg Documented by: Guaifenesin (Mucinex Er) 600 mg PO BID [facility] Last Admin: 04/07/19 09:29 Dose: 600 mg Documented by: Sodium Chloride (Nacl 0.9% 1000 Ml) 1,000 mls @ 125 mls/hr IV DIRECT [facility] Last Admin: 04/07/19 12:51 Dose: 125 mls/hr Documented by: Methylprednisolone Sodium Succinate (Solu-Medrol) 40 mg IV Q8H [facility] Last Admin: 04/07/19 10:43 Dose: 40 mg Documented by: Ondansetron HCl (Zofran) 4 mg IV Q8H PRN PRN Reason: Nausea And Vomiting Oseltamivir Phosphate (Tamiflu) 75 mg PO BID [facility] Stop: 04/11/19 10:01 Last Admin: 04/07/19 10:39 Dose: 75 mg Documented by: Sodium Chloride (Sodium Chloride Flush Syringe 10 Ml) 10 ml IV PRN PRN PRN Reason: LINE FLUSH Physical Examination Vital signs: Vital Signs Pulse Resp BP Pulse Ox 147 H 30 H 109/78 100 04/06/19 09:23 04/06/19 09:23 04/06/19 09:23 04/06/19 09:23 Results - Laboratory Findings CBC and BMP: 04/07/19 04:53 04/07/19 04:53 ABG ABG pH 7.373 pH Units (7.350-7.450) 04/06/19 Unknown ABG pCO2 28.3 mm Hg 04/06/19 Unknown ABG pO2 76.7 mm Hg (80.0-90.0) L 04/06/19 Unknown ABG O2 Saturation 95.6 % (95.0-99.0) 04/06/19 Unknown PT/INR, D-dimer PT 14.2 Sec. (12.2-14.9) 04/06/19 09:36 INR 1.09 (0.87-1.13) 04/06/19 09:36 Abnormal lab findings: Abnormal Labs 04/06/19 04/06/19 04/06/19 09:36 09:36 11:06 WBC 13.0 H Lymph % (Auto) 7.1 L Lymph # 0.9 L Seg Neutrophils % 87.7 H Seg Neuts % (Manual) Lymphocytes % (Manual) Seg Neutrophils # 11.4 H Seg Neutrophils # Man Lymphocytes # (Manual) ABG pO2 ABG HCO3 ABG Base Excess Oxyhemoglobin Potassium 3.2 L Chloride Carbon Dioxide 17 L Creatinine Glucose 187 H Lactic Acid 3.40 H* Calcium Magnesium 2.50 H Total Creatine Kinase 158 H Albumin 3.8 L Influenza A (Rapid) 04/06/19 04/06/19 04/06/19 16:25 Unknown Unknown WBC Lymph % (Auto) Lymph # Seg Neutrophils % Seg Neuts % (Manual) Lymphocytes % (Manual) Seg Neutrophils # Seg Neutrophils # Man Lymphocytes # (Manual) ABG pO2 76.7 L ABG HCO3 16.1 L ABG Base Excess -7.5 L Oxyhemoglobin 94.0 L Potassium Chloride Carbon Dioxide Creatinine Glucose Lactic Acid 3.20 H* Calcium Magnesium Total Creatine Kinase Albumin Influenza A (Rapid) Positive A 04/07/19 04/07/19 04:53 04:53 WBC 12.0 H Lymph % (Auto) Lymph # Seg Neutrophils % Seg Neuts % (Manual) 97.0 H Lymphocytes % (Manual) 2.0 L Seg Neutrophils # Seg Neutrophils # Man 11.6 H Lymphocytes # (Manual) 0.2 L ABG pO2 ABG HCO3 ABG Base Excess Oxyhemoglobin Potassium Chloride 108.3 H Carbon Dioxide 18 L Creatinine 0.6 L Glucose 138 H Lactic Acid Calcium 8.1 L Magnesium Total Creatine Kinase Albumin Influenza A (Rapid)
[2019-04-08] MEDS: methylPREDNISolone Sod Succinate 40 MG/1 ML INJ IV SCH ×2 (02:02→09:20)
[2019-04-08] MEDS: IPRATROPIUM/ALBUTEROL SULFATE 3 ML AMPUL.NEB IH SCH ×3 (02:55→14:49)
[2019-04-08] MEDS: BUDESONIDE 0.5 MG/2 ML NEBU IH SCH (08:36)
[2019-04-08] MEDS: guaiFENesin ER 600 MG TAB PO SCH (09:20)
[2019-04-08] MEDS: OSELTAMIVIR 75 MG CAP PO SCH (09:20)
[2019-04-08] MEDS: SODIUM CHLORIDE 0.9% 1000 ML 1,000 ML IV SCH (09:21)
[2019-04-08] MEDS ORDERED: FLU VACC QUAD 2019-20 (3 YR UP)/PF 60 MCG/0.5 ML SYRINGE IM ONE (12:00)
[2019-04-08 12:01] VITALS: BP 121/80
--- NOTE | 2019-04-08 12:41 | Discharge Summary ---
Providers - Providers Date of Admission: 04/06/19 13:11 Date of discharge: 04/08/19 Attending physician: CHAI LOFTON 04/06/19 17:32 Consult to Physician [CONS] Routine Comment: Consulting Provider: FRANCHESKA WISE Physician Instructions: Reason For Exam: asthma Primary care physician: [employer] Hospitalization Condition: Stable Hospital course: 23-year-old woman who presents to the hospital with fever shortness of breath cough and wheezing. Patient was admitted to medical floor with scheduled nebs, abx, iv steroids and supplemental O2 to keep O2 sat at 94%. CXR showed no infiltrates. She was positive for influenza A , since admission she was placed on Tamiflu. Patients symptom improved with medical management. Patient was then discharge dhome in stable condition with outpt f/u. Chest x-ray; no acute abnormality Discharge diagnosis and mx: /Asthma exacerbation; cont steroids, nebs, pulmonology consults, supplemental O2 /Sirs with influenza A Started on Tamiflu, Positive rapid flu test with high fever in the ER /Lactic acidosis, Mx with IV fluids /Hypokalemia -Repleted /DVT prophylaxis; early ambulation /Marijuana abuse, UDS positive Preventative health counseling performed for 17 minutes on admission Disposition: MA-01 TO HOME OR SELFCARE Time spent for discharge: 34 minutes Core Measure Documentation - Palliative Care Palliative Care/ Comfort Measures: Not Applicable - Core Measures Any of the following diagnoses?: none Exam - Constitutional Vitals: Temp Pulse Resp BP Pulse Ox 98.1 F 81 18 121/80 97 04/08/19 11:59 04/08/19 11:59 04/08/19 11:59 04/08/19 11:59 04/08/19 11:59 General appearance: Present: no acute distress, well-nourished - EENT Eyes: Present: PERRL ENT: hearing intact, clear oral mucosa - Neck Neck: Present: supple, normal ROM - Respiratory Respiratory effort: normal Respiratory: bilateral: CTA - Cardiovascular Heart Sounds: Present: S1 & S2. Absent: rub, click - Extremities Extremities: pulses symmetrical, No edema Peripheral Pulses: within normal limits - Abdominal General gastrointestinal: Present: soft, non-tender, non-distended, normal bowel sounds - Integumentary Integumentary: Present: clear, warm, dry - Musculoskeletal Musculoskeletal: gait normal, strength equal bilaterally - Psychiatric Psychiatric: appropriate mood/affect, intact judgment & insight - Neurologic Neurologic: CNII-XII intact, moves all extremities Plan Activity: advance as tolerated Weight Bearing Status: Weight Bear as Tolerated Diet: low fat Follow up with: PRIMARY CARE, [Primary Care Provider] - 3-5 Days Prescriptions: Albuterol Sulfate [Albuterol 0.63% NEBS] 0.63 mg IH TID PRN #1 box PRN Reason: Wheezing predniSONE [Deltasone] 20 mg PO QDAY 7 Days #7 tab guaiFENesin ER [Mucinex ER] 600 mg PO BID #10 tablet ALBUTEROL Inhaler (OR & NICU) [ProAir HFA Inhaler] 2 puff IH QID PRN #8.5 gram PRN Reason: Shortness Of Breath Oseltamivir [Tamiflu] 75 mg PO BID #6 capsule
== END 2019-04-08 16:44 | disposition home or self-care (01) | DRG 193 ==
LOC: ED 09:12 → 3A 13:11
PROVIDERS: ADMIT Internal Medicine; ATTEND Internal Medicine
DX: J10.1 Influenza due to other identified influenza virus with other respiratory manifestations (principal); J96.01 Acute respiratory failure with hypoxia; J45.902 Unspecified asthma with status asthmaticus; E87.2 Acidosis; R65.10 Systemic inflammatory response syndrome (SIRS) of non-infectious origin without acute organ dysfunction; Z68.42 Body mass index [BMI] 45.0-49.9, adult; E87.6 Hypokalemia; F12.10 Cannabis abuse, uncomplicated; E66.9 Obesity, unspecified; M19.90 Unspecified osteoarthritis, unspecified site; Z79.899 Other long term (current) drug therapy
CPT/HCPCS: 36415; 71045; 80048; 80076; 80307; 81001; 82140; 82550; 82553; 82803; 83735; 83880; 84439; 84443; 84484; 85007; 85025; 85610; 85730; 87040; 87086; 87400; 90686; 93005; 93010; 94640; 94644; 94760; 99292; G0378; J0696; J2405; J2920; J3370; J7030; J7040

== ENCOUNTER 2020-02-22 18:02 | Emergency (ER) | payer SELFPAY ==
[2020-02-22 18:27] VITALS: BP 118/77
[2020-02-22] MEDS ORDERED: IPRATROPIUM/ALBUTEROL SULFATE 3 ML AMPUL.NEB IH ONE (19:41)
[2020-02-22] MEDS ORDERED: dexAMETHasone 20 MG/5 ML VIAL IM ONE (19:41)
--- NOTE | 2020-02-22 19:44 | Event Note ---
ED Screening Note ED Screening Note: Patient presents for asthma exacerbation States that she ran out of her medication She states that she uses DuoNeb nebulizer treatments She has associated wheezing, dry cough at night and with laying flat She denies any fever, nausea, vomiting, diarrhea, productive cough She states that she was last admitted for her asthma April 2019 She states that she was intubated 3 years ago No allergies to medications Last menstrual cycle a week ago She states that she does not have a rescue inhaler at home This initial assessment/diagnostic orders/clinical plan/treatment(s) is/are subject to change based on patients health status, clinical progression and re- assessment by fellow clinical providers in the ED. Further treatment and workup at subsequent clinical providers discretion. Patient/guardian urged not to elope from the ED as their condition may be serious if not clinically assessed and managed. Initial orders include: Neb treatment, steroids
--- NOTE | 2020-02-22 20:45 | Emergency Department Report ---
ED Asthma HPI - General Chief Complaint: Adult Asthma Stated Complaint: OUT OF ASTHMA MEDS Time Seen by Provider: 02/22/20 19:41 Source: patient Mode of arrival: Ambulatory Limitations: No Limitations - History of Present Illness Initial Comments: The patient was evaluated in the emergency department for symptoms described in the history of present illness. He/she was evaluated in the context of the global COVID-19 pandemic, which necessitated consideration that the patient might be at risk for infection with the virus that causes COVID-19. Instit utional protocols and algorithms that pertain to the evaluation of patients at risk for COVID-19 are in a state of rapid change based on information released by regulatory bodies including the CDC and federal and state organizations. These policies and algorithms were followed during the patient's care in the emergency department. Please note that these policies, procedures and recommendations changed on a rapid basis. Patient presents for asthma exacerbation. States that she ran out of her medication. She states that she uses DuoNeb nebulizer treatments. She has associated wheezing, dry cough at night and with laying flat. She denies any fever, nausea, vomiting, diarrhea, productive cough. She states that she was last admitted for her asthma April 2019. She states that she was intubated 3 years ago. No allergies to medications. Last menstrual cycle a week ago. Asthma History: history of frequent attac, history of prior ED visit, previously intubated Severity: moderate Context: ran out of meds Associated Symptoms: productive cough. denies: fever, leg edema, syncope - Related Data Current Asthma Therapy: inhaled bronchodilator Previous Rx's Medication Instructions Recorded Last Taken Type Oseltamivir [Tamiflu] 75 mg PO BID #6 capsule 04/08/19 Unknown Rx guaiFENesin ER [Mucinex ER] 600 mg PO BID #10 tablet 04/08/19 Unknown Rx Albuterol Mdi (or & Nicu Only) 2 puff IH QID PRN #8.5 gram 02/22/20 Unknown Rx [ProAir HFA Inhaler] Albuterol Sulfate [Albuterol 0.63% 0.63 mg IH TID PRN #1 box 02/22/20 Unknown Rx NEBS] Benzonatate [Tessalon Perles] 100 mg PO Q8HR PRN #15 capsule 02/22/20 Unknown Rx predniSONE [Deltasone] 20 mg PO QDAY 7 Days #7 tab 02/22/20 Unknown Rx Allergies Allergy/AdvReac Type Severity Reaction Status Date / Time No Known Allergies Allergy Unverified 03/01/19 21:10 ED Review of Systems ROS: Stated complaint: OUT OF ASTHMA MEDS Other details as noted in HPI Comment: All other systems reviewed and negative ED Past Medical Hx - Past Medical History Previous Medical History?: Yes Hx Arthritis: Yes Hx Asthma: Yes - Surgical History Past Surgical History?: Yes Additional Surgical History: wisdom teeth removal - Social History Smoking Status: Current Every Day Smoker Substance Use Type: Alcohol, Marijuana - Medications Home Medications: Home Medications Medication Instructions Recorded Confirmed Last Taken Type Oseltamivir [Tamiflu] 75 mg PO BID #6 capsule 04/08/19 Unknown Rx guaiFENesin ER [Mucinex ER] 600 mg PO BID #10 tablet 04/08/19 Unknown Rx Albuterol Mdi (or & Nicu Only) 2 puff IH QID PRN #8.5 gram 02/22/20 Unknown Rx [ProAir HFA Inhaler] Albuterol Sulfate [Albuterol 0.63% 0.63 mg IH TID PRN #1 box 02/22/20 Unknown Rx NEBS] Benzonatate [Tessalon Perles] 100 mg PO Q8HR PRN #15 capsule 02/22/20 Unknown Rx predniSONE [Deltasone] 20 mg PO QDAY 7 Days #7 tab 02/22/20 Unknown Rx ED Physical Exam - General Limitations: No Limitations General appearance: alert, in no apparent distress - Head Head exam: Present: atraumatic, normocephalic - Eye Eye exam: Present: normal appearance - ENT ENT exam: Present: mucous membranes moist - Neck Neck exam: Present: normal inspection, full ROM - Respiratory Respiratory exam: Present: wheezes, prolonged expiratory - Cardiovascular Cardiovascular Exam: Present: regular rate, normal rhythm. Absent: systolic murmur, diastolic murmur, rubs, gallop - GI/Abdominal GI/Abdominal exam: Present: soft, normal bowel sounds - Back Exam Back exam: Present: normal inspection - Neurological Exam Neurological exam: Present: alert, oriented X3 - Psychiatric Psychiatric exam: Present: normal affect, normal mood - Skin Skin exam: Present: warm, dry, intact, normal color. Absent: rash ED Course Vital Signs 02/22/20 02/22/20 18:25 22:04 Temperature 98.8 F Pulse Rate 104 H Pulse Rate [ 94 H Bilateral Throughout] Respiratory 18 Rate Respiratory 17 Rate [Bilateral Throughout] Blood Pressure 118/77 O2 Sat by Pulse 96 Oximetry ED Medical Decision Making - Medical Decision Making Patient presents for asthma exacerbation. States that she ran out of her medication. She states that she uses DuoNeb nebulizer treatments. She has associated wheezing, dry cough at night and with laying flat. She denies any fever, nausea, vomiting, diarrhea, productive cough. She states that she was last admitted for her asthma April 2019. She states that she was intubated 3 years ago. No allergies to medications. Last menstrual cycle a week ago. Patient's had albuterol, Atrovent, dexamethasone treatments and has improved. Patient be discharged home on albuterol nebs albuterol inhaler prednisone Tessalon Perles and instructed to follow-up with her primary care provider. Critical care attestation.: If time is entered above; I have spent that time in minutes in the direct care of this critically ill patient, excluding procedure time. ED Disposition Clinical Impression: Asthma Disposition: DC- TO HOME OR SELFCARE Is pt being admited?: No Does the pt Need Aspirin: No Condition: Stable Instructions: Asthma (ED), Asthma, Adult, [id number] Additional Instructions: Please take medications as prescribed. Follow-up with your primary care provider. Prescriptions: Albuterol Sulfate [Albuterol 0.63% NEBS] 0.63 mg IH TID PRN #1 box PRN Reason: Wheezing predniSONE [Deltasone] 20 mg PO QDAY 7 Days #7 tab Albuterol Mdi (or & Nicu Only) [ProAir HFA Inhaler] 2 puff IH QID PRN #8.5 gram PRN Reason: Shortness Of Breath Benzonatate [Tessalon Perles] 100 mg PO Q8HR PRN #15 capsule PRN Reason: Cough Referrals: PRIMARY CARE,MD [Primary Care Provider] - 3-5 Days Your, primary care provider [Other] - 3-5 Days Forms: Work/School Release Form(ED)
[2020-02-22] MEDS ORDERED: ALBUTEROL 2.5 MG/3 ML NEBU IH ONE ×2 (21:34)
[2020-02-22] MEDS ORDERED: IPRATROPIUM 0.02% NEBU 2.5 ML IH ONE ×2 (21:46→21:49)
== END 2020-02-22 22:56 | disposition home or self-care (01) ==
LOC: ED 18:02
DX: J45.909 Unspecified asthma, uncomplicated (principal); M19.90 Unspecified osteoarthritis, unspecified site; F17.200 Nicotine dependence, unspecified, uncomplicated; F12.10 Cannabis abuse, uncomplicated; Z79.899 Other long term (current) drug therapy
CPT/HCPCS: 94640; 96372; 99283; J1100; 94644

== ENCOUNTER 2020-05-23 15:11 | Emergency (ER) | payer SELFPAY ==
--- NOTE | 2020-05-23 15:52 | Event Note ---
ED Screening Note Date of service: 05/23/20 Time: 15:51 ED Screening Note: This initial assessment/diagnostic orders/clinical plan/treatment(s) is/are subject to change based on patients health status, clinical progression and re- assessment by fellow clinical providers in the ED. Further treatment and workup at subsequent clinical providers discretion. Patient/guardian urged not to elope from the ED as their condition may be serious if not clinically assessed and managed. Initial orders include: 24-year-old female states that she was seen by her eye doctor yesterday and told that she has bilateral optic nerve edema and was sent to the emergency room for further evaluation. She is currently with headache no nausea no vomiting no weakness she ambulates with steady gait patient is in no apparent distress
[2020-05-23 15:59] LABS: Hematocrit 39.6 % (30.3-42.9); Hemoglobin 13.3 gm/dl (10.1-14.3); Mean Corpuscular HGB Conc 34 % (30-34); Mean Corpuscular Volume 91 fl (79-97); Platelet Count 237 K/mm3 (140-440); Red Blood Count 4.36 M/mm3 (3.65-5.03)
[2020-05-23 16:19] LABS: Alanine Aminotransferase 16 units/L (7-56); Blood Urea Nitrogen 11 mg/dL (7-17); Calcium 8.4 mg/dL (8.4-10.2); Hemolysis Index 4
[2020-05-23 16:21] LABS: BUN/Creatinine Ratio 18
--- NOTE | 2020-05-23 16:52 | Emergency Department Report ---
HPI - General Chief Complaint: Eye Problems Time Seen by Provider: 05/23/20 16:27 - HPI HPI: This is a 24-year-old female presents to the emergency department after she was sent here by her mental hygienist. The patient saw her mental hygienist yesterday, Yessenia Gudino O.D., for a regular checkup and she was told that she has bilateral optic nerve edema and to go immediately to the emergency department. The patient waited 1 day but then came in for further evaluation of this. The note from the mental hygienist says "bilateral optic nerve edema. Please rule out malignant hypertension, brain tumor, aneurysm." The patient does admit to some chronic intermittent blurry vision and mild intermittent headaches. Currently she has a frontal headache, 2 out of 10 in intensity. The patient wears glasses but did not bring them with her today. She has a past medical history of asthma. She denies any discharge from the eyes, increased tearing, eye pain, slurred speech, facial droop, numbness or paresthesias. ED Past Medical Hx - Past Medical History Hx Arthritis: Yes Hx Asthma: Yes - Surgical History Additional Surgical History: wisdom teeth removal - Social History Smoking Status: Never Smoker Substance Use Type: None - Medications Home Medications: Home Medications Medication Instructions Recorded Confirmed Last Taken Type Oseltamivir [Tamiflu] 75 mg PO BID #6 capsule 04/08/19 Unknown Rx guaiFENesin ER [Mucinex ER] 600 mg PO BID #10 tablet 04/08/19 Unknown Rx Albuterol Mdi (or & Nicu Only) 2 puff IH QID PRN #8.5 gram 02/22/20 Unknown Rx [ProAir HFA Inhaler] Albuterol Sulfate [Albuterol 0.63% 0.63 mg IH TID PRN #1 box 02/22/20 Unknown Rx NEBS] Benzonatate [Tessalon Perles] 100 mg PO Q8HR PRN #15 capsule 02/22/20 Unknown Rx predniSONE [Deltasone] 20 mg PO QDAY 7 Days #7 tab 02/22/20 Unknown Rx ED Review of Systems ROS: Stated complaint: BILATERAL EYE CONCERN Other details as noted in HPI Comment: All other systems reviewed and negative Constitutional: denies: chills, fever Eyes: vision change. denies: eye pain, eye discharge ENT: denies: ear pain, throat pain Respiratory: denies: cough, shortness of breath Cardiovascular: denies: chest pain, palpitations Gastrointestinal: denies: abdominal pain, vomiting Genitourinary: denies: dysuria, discharge Musculoskeletal: denies: back pain, arthralgia Skin: denies: rash, lesions Neurological: headache. denies: weakness, numbness, paresthesias Physical Exam - Physical Exam Vital Signs: Vital Signs 05/23/20 05/23/20 15:21 16:33 Temperature 98.5 F Pulse Rate 93 H 88 Respiratory 18 18 Rate Blood Pressure 140/87 Blood Pressure 123/89 [Left] O2 Sat by Pulse 95 98 Oximetry Physical Exam: GENERAL: The patient is well-developed well-nourished. HENT: Normocephalic. Atraumatic. Patient has moist mucous membranes. EYES: Extraocular motions are intact. Pupils equal reactive to light bilaterally. No nystagmus. Visual acuity: OD 20/25, OS 20/30, OU 20/20. NECK: Supple. Trachea is midline. CHEST/LUNGS: Clear to auscultation. There is no respiratory distress noted. HEART/CARDIOVASCULAR: Regular. There is no tachycardia. There is no murmur. ABDOMEN: Abdomen is soft, nontender. Patient has normal bowel sounds. SKIN: Skin is warm and dry. NEURO: The patient is awake, alert, and oriented. The patient is cooperative. The patient has no focal neurologic deficits. Normal speech. Cranial nerves II through XII grossly intact. No facial asymmetry. No pronator drift. MUSCULOSKELETAL: There is no tenderness or deformity. There is no limitation range of motion. ED Course Vital Signs 05/23/20 05/23/20 15:21 16:33 Temperature 98.5 F Pulse Rate 93 H 88 Respiratory 18 18 Rate Blood Pressure 140/87 Blood Pressure 123/89 [Left] O2 Sat by Pulse 95 98 Oximetry ED Medical Decision Making - Lab Data Result diagrams: 05/23/20 15:50 05/23/20 15:50 Lab Results 05/23/20 05/23/20 Range/Units 15:50 15:50 WBC 7.4 (4.5-11.0) K/mm3 RBC 4.36 (3.65-5.03) M/mm3 Hgb 13.3 (10.1-14.3) gm/dl Hct 39.6 (30.3-42.9) % MCV 91 (79-97) fl MCH 30 (28-32) pg MCHC 34 (30-34) % RDW 15.0 (13.2-15.2) % Plt Count 237 (140-440) K/mm3 Sodium 136 L (137-145) mmol/L Potassium 4.3 (3.6-5.0) mmol/L Chloride 102.4 (98-107) mmol/L Carbon Dioxide 24 (22-30) mmol/L Anion Gap 14 mmol/L BUN 11 (7-17) mg/dL Creatinine 0.6 (0.6-1.2) mg/dL Estimated GFR > 60 ml/min BUN/Creatinine Ratio 18 % Glucose 99 (65-100) mg/dL Calcium 8.4 (8.4-10.2) mg/dL Total Bilirubin 0.30 (0.1-1.2) mg/dL AST 14 (5-40) units/L ALT 16 (7-56) units/L Alkaline Phosphatase 108 (35-129) units/L Total Protein 6.9 (6.3-8.2) g/dL Albumin 4.0 (3.9-5) g/dL Albumin/Globulin Ratio 1.4 % - Radiology Data Radiology results: report reviewed CT HEAD WITHOUT CONTRAST INDICATION / CLINICAL INFORMATION: sent in by eye doctor with Bilateral Optic edema. Edema. TECHNIQUE: All CT scans at this location are performed using CT dose reduction for ALARA by means of automated exposure control. COMPARISON: None available. FINDINGS: HEMORRHAGE: No evidence of intracranial hemorrhage or extra-axial fluid collection. EXTRA-AXIAL SPACES: Cortical sulci, sylvian fissures and basilar cisterns have an unremarkable appearance. VENTRICULAR SYSTEM: Incidental note is made of persistence of the cava septum pellucidum. The third and lateral ventricles are of normal size and configuration. CEREBRAL PARENCHYMA: No areas of abnormal brain parenchymal attenuation are identified. There is no indication of recent infarction. MIDLINE SHIFT OR HERNIATION: There is no mass effect. CEREBELLUM / BRAINSTEM: Brainstem and cerebellum have an unremarkable appearance. MIDLINE STRUCTURES:No abnormalities of the pituitary gland or pineal region are identified. INTRACRANIAL VESSELS:No abnormalities are identified on this noncontrast head CT. ORBITS: visualized portions of the orbits have an unremarkable appearance. SOFT TISSUES of HEAD: No significant abnormality. CALVARIUM: Evaluation of bone windows reveals no abnormalities. PARANASAL SINUSES / MASTOID AIR CELLS: Visualized portions of the paranasal sinuses are free from inflammatory mucosal disease. Mastoid air cells are normally pneumatized. IMPRESSION: 1. Normal head CT without contrast. CTA head with intravenous contrast CLINICAL HISTORY: optic nerve edema with headaches, blurry vision TECHNIQUE: 0.625 mm thick contiguous axial scans were obtained from the skull base to the skull vertex during rapid bolus administration of intravenous contrast material. Multiplanar reconstructions we re produced in the coronal and sagittal planes. In addition 3 plane MIP instructions were produced and reviewed for this report. The axial source images and reconstructed images were reviewed for this report. CONTRAST DOSE REPORT: Omnipaque 350: 100 ml administered intravenously. All CT scans at this location are performed using CT dose reduction for ALARA by means of automated exposure control. FINDINGS: Internal carotid arteries:Fani, cavernous, opthalmic, clinoid and supraclinoid segments of the ICAs have an unremarkable appearance. The origins of the ophthalmic arteries are not well demonstrated on this study. Ophthalmic arteries are not well visualized as they traverse the optic canals. This appears to be due to close proximity between the vessels in the adjacent bony wang of the optic canals. Middle cerebral arteries:Normal and symmetrical M1 segments of the middle cerebral arteries are demonstrated. No abnormalities are seen on evaluation of the insular or opercular branches. Anterior cerebral arteries:Bilaterally symmetrical A1 segments are demonstrated. No abnormalities are seen along the course of the A2 segments or their visualized pericallosal branches. Vertebral arteries:Bilaterally symmetrical vertebral arteries are demonstrated. Both vertebral arteries contribute to the basilar artery origin. Basilar artery:Basilar artery has an unremarkable appearance. Posterior cerebral arteries: Bilaterally symmetrical posterior cerebral arteries are identified. Intact posterior communicating arteries are present bilaterally. Dural sinuses: Dural venous sinuses are well demonstrated on this exam. There is no evidence of dural sinus thrombosis. Developmental asymmetry of the transverse sinuses is observed. Left transverse sinus is dominant. Right transverse sinus is hypoplastic. There is corresponding asymmetry in the size of the jugular foramina, left much larger than right. IMPRESSION: 1. No significant abnormality on CTA head. 2. The origins and intercanalicular segments of the ophthalmic arteries are poorly visualized on this study bilaterally. - Medical Decision Making This patient was sent in by her mental hygienist after they said that they found bilateral optic nerve edema. The patient does admit to some intermittent blurry vision and intermittent frontal headache. On examination she does not have any focal, motor or sensory deficits and her cranial nerves are intact. Her visual acuity, without her glasses, is quite good. Labs have been unremarkable including CBC and metabolic panel. The patient had a CT scan of the head without contrast, followed by a CT angiography of the head, that both resulted as a normal examination. There is no evidence of aneurysm, mass, hydrocephalus, bleed, large vessel occlusion, or any other acute process. Vital signs have been reassuring throughout her ED course including being afebrile. The patient appears safe for discharge home at this time and has been given multiple outpatient referrals for ophthalmology. Critical Care Time: No Critical care attestation.: If time is entered above; I have spent that time in minutes in the direct care of this critically ill patient, excluding procedure time. ED Disposition Clinical Impression: Intermittent headache, Blurred vision Disposition: DC- TO HOME OR SELFCARE Is pt being admited?: No Condition: Stable Instructions: Blurred Vision, Adult, General Headache Without Cause Additional Instructions: Please follow-up with an relief cook in the next few days. I have given you multiple referrals for local ophthalmologists. Return to the emergency department with any worsening of your symptoms, new or concerning symptoms not addressed during this current emergency department visit, or with any acute distress. Referrals: CARLA NORTH MD [Staff Physician] - 2-3 Days DOMINIC MCKEON MD [Staff Physician] - 2-3 Days [facility] [Provider Group] - 2-3 Days Time of Disposition: 17:45
--- NOTE | 2020-05-23 17:27 | Cat Scan Report ---
CT HEAD WITHOUT CONTRAST INDICATION / CLINICAL INFORMATION: sent in by eye doctor with Bilateral Optic edema. Edema. TECHNIQUE: All CT scans at this location are performed using CT dose reduction for ALARA by means of automated e xposure control. COMPARISON: None available. FINDINGS: HEMORRHAGE: No evidence of intracranial hemorrhage or extra-axial fluid collection. EXTRA-AXIAL SPACES: Cortical sulci, sylvian fissures and basilar cisterns have an unremarkable appear ance. VENTRICULAR SYSTEM: Incidental note is made of persistence of the cava septum pellucidum. The third a nd lateral ventricles are of normal size and configuration. CEREBRAL PARENCHYMA: No areas of abnormal brain parenchymal attenuation are identified. There is no i ndication of recent infarction. MIDLINE SHIFT OR HERNIATION: There is no mass effect. CEREBELLUM / BRAINSTEM: Brainstem and cerebellum have an unremarkable appearance. MIDLINE STRUCTURES:No abnormalities of the pituitary gland or pineal region are identified. INTRACRANIAL VESSELS:No abnormalities are identified on this noncontrast head CT. ORBITS: visualized portions of the orbits have an unremarkable appearance. SOFT TISSUES of HEAD: No significant abnormality. CALVARIUM: Evaluation of bone windows reveals no abnormalities. PARANASAL SINUSES / MASTOID AIR CELLS: Visualized portions of the paranasal sinuses are free from inf lammatory mucosal disease. Mastoid air cells are normally pneumatized. IMPRESSION: 1. Normal head CT without contrast. Signer Name: Antoni Mary MD Signed: 05/23/2020 5:23 PM Workstation Name: [id number]
--- NOTE | 2020-05-23 17:39 | Cat Scan Report ---
CTA head with intravenous contrast CLINICAL HISTORY: optic nerve edema with headaches, blurry vision TECHNIQUE: 0.625 mm thick contiguous axial scans were obtained from the skull base to the skull vertex during r apid bolus administration of intravenous contrast material. Multiplanar reconstructions were produced in the coronal and sagittal planes. In addition 3 plane MIP instructions were produced and reviewed for this report. The axial source images and reconstructed images were reviewed for this report. CONTRAST DOSE REPORT: Omnipaque 350: 100 ml administered intravenously. All CT scans at this location are performed using CT dose reduction for ALARA by means of automated e xposure control. FINDINGS: Internal carotid arteries:Fani, cavernous, opthalmic, clinoid and supraclinoid segments of the ICAs have an unremarkable appearance. The origins of the ophthalmic arteries are not well demonstrated on this study. Ophthalmic arteries are not well visualized as they traverse the optic canals. This appe ars to be due to close proximity between the vessels in the adjacent bony wang of the optic canals. Middle cerebral arteries:Normal and symmetrical M1 segments of the middle cerebral arteries are demon strated. No abnormalities are seen on evaluation of the insular or opercular branches. Anterior cerebral arteries:Bilaterally symmetrical A1 segments are demonstrated. No abnormalities are seen along the course of the A2 segments or their visualized pericallosal branches. Vertebral arteries:Bilaterally symmetrical vertebral arteries are demonstrated. Both vertebral arteri es contribute to the basilar artery origin. Basilar artery:Basilar artery has an unremarkable appearance. Posterior cerebral arteries: Bilaterally symmetrical posterior cerebral arteries are identified. Inta ct posterior communicating arteries are present bilaterally. Dural sinuses: Dural venous sinuses are well demonstrated on this exam. There is no evidence of dural sinus thrombosis. Developmental asymmetry of the transverse sinuses is observed. Left transverse sin us is dominant. Right transverse sinus is hypoplastic. There is corresponding asymmetry in the size o f the jugular foramina, left much larger than right. IMPRESSION: 1. No significant abnormality on CTA head. 2. The origins and intercanalicular segments of the ophthalmic arteries are poorly visualized on this study bilaterally. Signer Name: Antoni Mary MD Signed: 05/23/2020 5:34 PM Workstation Name: [id number]
[2020-05-23 17:52] VITALS: BP 128/82
== END 2020-05-23 18:01 | disposition home or self-care (01) ==
LOC: ED 15:11
DX: H53.8 Other visual disturbances (principal); R51.9 Headache, unspecified; J45.909 Unspecified asthma, uncomplicated; M19.90 Unspecified osteoarthritis, unspecified site; Z79.899 Other long term (current) drug therapy; Z98.890 Other specified postprocedural states
CPT/HCPCS: 36415; 70450; 70496; 80053; 85027; 99284; Q9967

== ENCOUNTER 2020-08-04 11:41 | Emergency (ER) | payer BC ==
[2020-08-04 12:28] VITALS: BP 119/82
--- NOTE | 2020-08-04 12:59 | Emergency Department Report ---
Chief Complaint: Medical Clearance Stated Complaint: MEDICATION REFILL Time Seen by Provider: 08/04/20 12:35 - Exam Vital Signs: Vital Signs 08/04/20 12:25 Temperature 98.7 F Pulse Rate 77 Respiratory 20 Rate Blood Pressure 119/82 O2 Sat by Pulse 100 Oximetry MSE screening note: Focused history and physical exam performed. Due to findings the following was ordered: ED Disposition for MSE Clinical Impression: Medication refill Disposition: MED SCREENING EXAM-LEFT Is pt being admited?: No Condition: Stable Instructions: Asthma, Adult Prescriptions: Albuterol Mdi (or & Nicu Only) [ProAir HFA Inhaler] 2 puff IH QID PRN #8.5 gram PRN Reason: Shortness Of Breath ALBUTEROL NEB's [Proventil 0.083% NEBS] 2.5 mg IH TID PRN 30 Days #1 box PRN Reason: Wheezing
--- NOTE | 2020-08-04 13:49 | Emergency Department Report ---
ED General Adult HPI - General Chief complaint: Medical Clearance Stated complaint: MEDICATION REFILL Time Seen by Provider: 08/04/20 12:35 Source: patient Mode of arrival: Ambulatory Limitations: No Limitations - History of Present Illness Initial comments: 24-year-old -Citizen Of [place] female patient presents for refills of her albuterol and nebulizer solution today. She states she ran out 3 days ago and has had mild wheezing without cough or fever. Patient reports history of multiple hospital admissions due to asthma exacerbations. She states she is otherwise feeling well. Patient states she plans to follow-up with her PCP within 5 days. - Related Data Previous Rx's Medication Instructions Recorded Last Taken Type Oseltamivir [Tamiflu] 75 mg PO BID #6 capsule 04/08/19 Unknown Rx guaiFENesin ER [Mucinex ER] 600 mg PO BID #10 tablet 04/08/19 Unknown Rx Albuterol Sulfate [Albuterol 0.63% 0.63 mg IH TID PRN #1 box 02/22/20 Unknown Rx NEBS] Benzonatate [Tessalon Perles] 100 mg PO Q8HR PRN #15 capsule 02/22/20 Unknown Rx predniSONE [Deltasone] 20 mg PO QDAY 7 Days #7 tab 02/22/20 Unknown Rx ALBUTEROL NEB's [Proventil 0.083% 2.5 mg IH TID PRN 30 Days #1 box 08/04/20 Unknown Rx NEBS] Albuterol Mdi (or & Nicu Only) 2 puff IH QID PRN #8.5 gram 08/04/20 Unknown Rx [ProAir HFA Inhaler] Allergies Allergy/AdvReac Type Severity Reaction Status Date / Time No Known Allergies Allergy Verified 08/04/20 12:26 ED Review of Systems ROS: Stated complaint: MEDICATION REFILL Other details as noted in HPI Constitutional: denies: chills, fever, malaise Respiratory: wheezing. denies: cough, shortness of breath Cardiovascular: denies: chest pain Neurological: denies: headache ED Past Medical Hx - Past Medical History Hx Arthritis: Yes Hx Asthma: Yes - Surgical History Additional Surgical History: wisdom teeth removal - Social History Smoking Status: Never Smoker Substance Use Type: None - Medications Home Medications: Home Medications Medication Instructions Recorded Confirmed Last Taken Type Oseltamivir [Tamiflu] 75 mg PO BID #6 capsule 04/08/19 Unknown Rx guaiFENesin ER [Mucinex ER] 600 mg PO BID #10 tablet 04/08/19 Unknown Rx Albuterol Sulfate [Albuterol 0.63% 0.63 mg IH TID PRN #1 box 02/22/20 Unknown Rx NEBS] Benzonatate [Tessalon Perles] 100 mg PO Q8HR PRN #15 capsule 02/22/20 Unknown Rx predniSONE [Deltasone] 20 mg PO QDAY 7 Days #7 tab 02/22/20 Unknown Rx ALBUTEROL NEB's [Proventil 0.083% 2.5 mg IH TID PRN 30 Days #1 box 08/04/20 Unknown Rx NEBS] Albuterol Mdi (or & Nicu Only) 2 puff IH QID PRN #8.5 gram 08/04/20 Unknown Rx [ProAir HFA Inhaler] ED Physical Exam - General Limitations: No Limitations General appearance: alert, in no apparent distress, obese - Head Head exam: Present: atraumatic, normocephalic - Eye Eye exam: Present: normal appearance. Absent: scleral icterus - ENT ENT exam: Present: normal exam - Neck Neck exam: Present: normal inspection - Respiratory Respiratory exam: Present: normal lung sounds bilaterally. Absent: respiratory distress - Cardiovascular Cardiovascular Exam: Present: regular rate, normal rhythm - Neurological Exam Neurological exam: Present: alert, oriented X3 - Psychiatric Psychiatric exam: Present: normal affect, normal mood - Skin Skin exam: Present: warm, dry, intact, normal color. Absent: rash ED Course Vital Signs 08/04/20 12:25 Temperature 98.7 F Pulse Rate 77 Respiratory 20 Rate Blood Pressure 119/82 O2 Sat by Pulse 100 Oximetry ED Medical Decision Making - Medical Decision Making Will refill asthma medications given history of asthma exacerbations resulting and hospital admissions. Her vitals are normal, her exam is normal, and she is well-appearing and stable for discharge home. Discussed signs and symptoms that should prompt immediate return to emergency department in detail with patient who verbalized understanding. Critical care attestation.: If time is entered above; I have spent that time in minutes in the direct care of this critically ill patient, excluding procedure time. ED Disposition Clinical Impression: Medication refill Disposition: DC-01 TO HOME OR SELFCARE Is pt being admited?: No Condition: Stable Instructions: Asthma, Adult Prescriptions: Albuterol Mdi (or & Nicu Only) [ProAir HFA Inhaler] 2 puff IH QID PRN #8.5 gram PRN Reason: Shortness Of Breath ALBUTEROL NEB's [Proventil 0.083% NEBS] 2.5 mg IH TID PRN 30 Days #1 box PRN Reason: Wheezing Referrals: [facility] [Provider Group] - 3-5 Days ESTRELLA VARELA MD [Staff Physician] - 3-5 Days
== END 2020-08-04 13:27 | disposition home or self-care (01) ==
LOC: ED 11:41
DX: J45.909 Unspecified asthma, uncomplicated (principal); Z76.0 Encounter for issue of repeat prescription; Z79.899 Other long term (current) drug therapy
CPT/HCPCS: 99281

== ENCOUNTER 2020-10-12 12:37 | Emergency (ER) | payer BC ==
--- NOTE | 2020-10-12 14:37 | Emergency Department Report ---
ED General Adult HPI - General Chief complaint: Adult Asthma Stated complaint: OUT OF INHALER Time Seen by Provider: 10/12/20 14:14 Source: patient Mode of arrival: Ambulatory Limitations: No Limitations - History of Present Illness Initial comments: 24-year-old -[place] female patient presents requesting albuterol inhaler refill. She states she ran out of her inhaler about 1 week ago and has been having mild wheezing without coughing or chest pain. She reports she has an appointment with her PCP next week. No current shortness of breath per patient. She also denies any fever/chills/sweats or other past medical history per -: Gradual - Related Data Previous Rx's Medication Instructions Recorded Last Taken Type Oseltamivir [Tamiflu] 75 mg PO BID #6 capsule 04/08/19 Unknown Rx guaiFENesin ER [Mucinex ER] 600 mg PO BID #10 tablet 04/08/19 Unknown Rx Albuterol Sulfate [Albuterol 0.63% 0.63 mg IH TID PRN #1 box 02/22/20 Unknown Rx NEBS] Benzonatate [Tessalon Perles] 100 mg PO Q8HR PRN #15 capsule 02/22/20 Unknown Rx ALBUTEROL NEB's [Proventil 0.083% 2.5 mg IH TID PRN 30 Days #1 box 08/04/20 Unknown Rx NEBS] Albuterol Mdi (or & Nicu Only) 2 puff IH QID PRN #8.5 gram 10/12/20 Unknown Rx [ProAir HFA Inhaler] predniSONE [Deltasone] 20 mg PO BID 3 Days #6 tab 10/12/20 Unknown Rx Allergies Allergy/AdvReac Type Severity Reaction Status Date / Time No Known Allergies Allergy Verified 08/04/20 12:26 ED Review of Systems ROS: Stated complaint: OUT OF INHALER Other details as noted in HPI Constitutional: denies: chills, fever Respiratory: wheezing. denies: cough, shortness of breath Cardiovascular: denies: chest pain Neurological: denies: headache ED Past Medical Hx - Past Medical History Hx Arthritis: Yes Hx Asthma: Yes - Surgical History Additional Surgical History: wisdom teeth removal - Social History Smoking Status: Never Smoker - Medications Home Medications: Home Medications Medication Instructions Recorded Confirmed Last Taken Type Oseltamivir [Tamiflu] 75 mg PO BID #6 capsule 04/08/19 Unknown Rx guaiFENesin ER [Mucinex ER] 600 mg PO BID #10 tablet 04/08/19 Unknown Rx Albuterol Sulfate [Albuterol 0.63% 0.63 mg IH TID PRN #1 box 02/22/20 Unknown Rx NEBS] Benzonatate [Tessalon Perles] 100 mg PO Q8HR PRN #15 capsule 02/22/20 Unknown Rx ALBUTEROL NEB's [Proventil 0.083% 2.5 mg IH TID PRN 30 Days #1 box 08/04/20 Unknown Rx NEBS] Albuterol Mdi (or & Nicu Only) 2 puff IH QID PRN #8.5 gram 10/12/20 Unknown Rx [ProAir HFA Inhaler] predniSONE [Deltasone] 20 mg PO BID 3 Days #6 tab 10/12/20 Unknown Rx ED Physical Exam - General Limitations: No Limitations General appearance: alert, in no apparent distress, obese - Head Head exam: Present: atraumatic, normocephalic - Eye Eye exam: Present: normal appearance. Absent: scleral icterus - Respiratory Respiratory exam: Present: normal lung sounds bilaterally. Absent: respiratory distress - Cardiovascular Cardiovascular Exam: Present: regular rate, normal rhythm - Neurological Exam Neurological exam: Present: alert, oriented X3, normal gait - Psychiatric Psychiatric exam: Present: normal affect, normal mood - Skin Skin exam: Present: warm, dry, intact, normal color. Absent: rash ED Course Vital Signs 10/12/20 13:04 Temperature 98.8 F Pulse Rate 74 Respiratory 15 Rate Blood Pressure 139/93 O2 Sat by Pulse 99 Oximetry ED Medical Decision Making - Medical Decision Making 24-year-old -[place] female patient presents requesting albuterol inhaler refill. She states she ran out of her inhaler about 1 week ago and has been having mild wheezing without coughing or chest pain. She reports she has an appointment with her PCP next week. No current shortness of breath per patient. She also denies any fever/chills/sweats or other past medical history per Lung exam is normal. No respiratory distress noted. Patient is well-appearing her vitals are within normal limits. She is stable for discharge home. Prescription refill given for albuterol. Recommend follow-up with PCP as scheduled. Strict return precautions were discussed in detail with patient who verbalized understanding. Critical care attestation.: If time is entered above; I have spent that time in minutes in the direct care of this critically ill patient, excluding procedure time. ED Disposition Clinical Impression: Asthma, mild intermittent Disposition: DC-01 TO HOME OR SELFCARE Is pt being admited?: No Condition: Stable Instructions: Asthma, Adult, Asthma (ED) Prescriptions: predniSONE [Deltasone] 20 mg PO BID 3 Days #6 tab Albuterol Mdi (or & Nicu Only) [ProAir HFA Inhaler] 2 puff IH QID PRN #8.5 gram PRN Reason: Shortness Of Breath Referrals: [facility] [Provider Group] - 3-5 Days
[2020-10-12 14:46] VITALS: BP 139/93
== END 2020-10-12 16:49 | disposition home or self-care (01) ==
LOC: ED 12:37
DX: J45.909 Unspecified asthma, uncomplicated (principal); M19.90 Unspecified osteoarthritis, unspecified site; Z79.899 Other long term (current) drug therapy
CPT/HCPCS: 99282